=== PATIENT | female | born 1960 | race Caucasian/White ===

== ENCOUNTER 2017-11-08 22:46 | Inpatient (IN) | payer OTHER ==
[~2017-11-08] VITALS: Ht 177.8 cm; Wt 132.6 kg
[2017-11-08] MEDS: LACTATED RINGER'S 1000 ML INJ 1,000 ML IV SCH (02:00)
[2017-11-08 22:45] VITALS: O2SAT 100
[2017-11-08] MEDS ORDERED: ceFAZolin 2 GM PREMIX 50 ML ONE (22:48)
[2017-11-08] MEDS ORDERED: DIPHTH/TETANUS/ACEL PERTUSSIS (BOOSTER) 0.5 ML VIAL/PFS IM ONE (22:48)
[2017-11-08] MEDS ORDERED: MIDAZOLAM HCL 5 MG/ML VIAL (1 ML) ONE (22:52)
[2017-11-08 23:14] LABS: AUTOMATED NEUTROPHIL # 5.1 TH/MM3 (1.8-7.7); BASOPHIL % 0.4 % (0.0-2.0); EOSINOPHIL # 0.2 TH/MM3 (0-0.4); EOSINOPHIL % 1.8 % (0.0-4.0); HEMATOCRIT 33.1 % (35.0-46.0); HEMOGLOBIN 10.9 GM/DL (11.6-15.3); LYMPH % 34.8 % (9.0-44.0); LYMPHOCYTE # 3.2 TH/MM3 (1.0-4.8); MEAN CELL VOLUME 84.4 FL (80.0-100.0); MEAN CORPUSCULAR HEMOGLOBIN 27.7 PG (27.0-34.0); MEAN CORPUSCULAR HGB CONC 32.8 % (32.0-36.0); MEAN PLATELET VOLUME 9.6 FL (7.0-11.0); MONOCYTE # 0.6 TH/MM3 (0-0.9); PLATELET COUNT 189 TH/MM3 (150-450); RED BLOOD COUNT 3.93 MIL/MM3 (4.00-5.30); RED CELL DISTRIBUTION WIDTH 15.2 % (11.6-17.2); WHITE BLOOD COUNT 9.1 TH/MM3 (4.0-11.0)
[2017-11-08] MEDS ORDERED: IOHEXOL 350 MG/ML 10 ML VIAL (for RAD DIAG) IVCONTRAST ONE (23:28)
[2017-11-08 23:33] LABS: PROTHROMBIN TIME - PATIENT 10.2 SEC (9.8-11.6)
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
[2017-11-08] MEDS ORDERED: MORPHINE SULFATE 4 MG/ML INJ IV PUSH PRN (23:45)
[2017-11-08] MEDS ORDERED: CHLORHEXIDINE GLUCONATE 2 % 1 PACK (2 CLOTHS) TOP PRN (23:45)
[2017-11-08] MEDS ORDERED: MISCELLANEOUS NURSING INFORMATION XX SCH (23:45)
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
[2017-11-09] MEDS: ACETAMINOPHEN 1000 MG/100 ML 100 ML IV SCH ×4 (00:35→16:13)
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
[2017-11-09] MEDS: cefTRIAXone INJ 1,000 MG in SODIUM CHLORIDE 0.9% INJ 100 ML IV SCH ×2 (02:00→11:47)
[2017-11-09 02:15] VITALS: BP 117/67; PULSE 76; RESP 17; TEMP 96.9; O2SAT 98
[2017-11-09] MEDS ORDERED: POVIDONE IODINE 5% (ANTISEPSIS KIT) 4 APPLICATIONS EACH NARE PRN (02:15)
[2017-11-09] MEDS ORDERED: CHLORHEXIDINE GLUCONATE 2 % 1 PACK (2 CLOTHS) TOPICAL PRN (02:15)
[2017-11-09] MEDS ORDERED: LACTATED RINGER'S 1000 ML IV PRN (02:15)
[2017-11-09] MEDS ORDERED: SODIUM CHLORID 0.9% 500 ML IV PRN (02:15)
[2017-11-09] MEDS ORDERED: METOPROLOL TARTRATE 25 MG TAB PO PRN (02:15)
[2017-11-09] MEDS: MORPHINE SULFATE 8 MG/ML INJ IV PUSH PRN ×4 (02:23→22:58)
[2017-11-09] MEDS: ONDANSETRON HCL 4 MG/2 ML VIAL IV PUSH PRN ×2 (02:58→11:54)
[2017-11-09] MEDS ORDERED: ONDANSETRON HCL 4 MG/2 ML VIAL IV PUSH PRN (03:00)
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
[2017-11-09] MEDS ORDERED: CHLORHEXIDINE GLUCONATE 2 % 1 PACK (2 CLOTHS) TOP SCH (04:00)
[2017-11-09 04:40] VITALS: BP 122/61; PULSE 80; RESP 17; TEMP 96.8; O2SAT 100
[2017-11-09 07:29] LABS: BICARBONATE 25.8 MEQ/L (21.0-32.0); CALCIUM 8.5 MG/DL (8.5-10.1); CREATININE 0.81 MG/DL (0.50-1.00)
[2017-11-09 07:30] LABS: AUTOMATED NEUTROPHIL # 8.2 TH/MM3 (1.8-7.7); BASOPHIL % 0.3 % (0.0-2.0); EOSINOPHIL % 0.1 % (0.0-4.0); HEMATOCRIT 29.7 % (35.0-46.0); HEMOGLOBIN 9.9 GM/DL (11.6-15.3); LYMPH % 10.3 % (9.0-44.0); MEAN CORPUSCULAR HEMOGLOBIN 28.2 PG (27.0-34.0); MEAN CORPUSCULAR HGB CONC 33.2 % (32.0-36.0); MEAN PLATELET VOLUME 9.6 FL (7.0-11.0); MONO % 7.5 % (0.0-8.0); MONOCYTE # 0.8 TH/MM3 (0-0.9); NEUT % 81.8 % (16.0-70.0); PLATELET COUNT 140 TH/MM3 (150-450); RED CELL DISTRIBUTION WIDTH 15.3 % (11.6-17.2)
[2017-11-09] MEDS ORDERED: VANCOMYCIN HCL 1000 MG VIAL ONE (08:33)
[2017-11-09] MEDS ORDERED: GENTAMICIN SULFATE 80 MG/2 ML VIAL ONE (08:33)
[2017-11-09] MEDS ORDERED: SODIUM CHLOR 0.9% 250 ML INJ 250 ML ONE (08:33)
[2017-11-09] MEDS ORDERED: PERC5TAB12 PO (08:37)
[2017-11-09] MEDS ORDERED: synthroid (08:38)
[2017-11-09] MEDS ORDERED: atenolol (08:39)
[2017-11-09] MEDS ORDERED: SODIUM CHLORIDE 0.9% FLUSH 10 ML FLUSH IV FLUSH PRN (08:45)
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
[2017-11-09] MEDS: SODIUM CHLORIDE 0.9% FLUSH 10 ML FLUSH IV FLUSH SCH (09:00)
[2017-11-09] MEDS ORDERED: DOCUSATE SODIUM 100 MG CAP PO SCH (09:00)
[2017-11-09] MEDS: DOCUSATE SODIUM 50 MG/SENNA 8.6 MG TAB PO SCH ×2 (09:00→20:40)
[2017-11-09] MEDS ORDERED: MAGNESIUM HYDROXIDE SUSP 30 ML CUP PO PRN (09:15)
[2017-11-09] MEDS ORDERED: MORPHINE SULFATE 8 MG/ML INJ IV PUSH PRN (09:15)
[2017-11-09] MEDS ORDERED: SENNOSIDES 8.6 MG TAB PO PRN (09:15)
[2017-11-09] MEDS ORDERED: BISACODYL 10 MG SUPP RECTAL PRN (09:15)
[2017-11-09] MEDS ORDERED: LACTULOSE SYRUP 20 GM/30 ML CUP PO PRN (09:30)
[2017-11-09] MEDS ORDERED: Post-op Orders (for Pharmacy) XX ONE (10:00)
[2017-11-09] MEDS: KETOROLAC TROMETHAMINE 30 MG/ML (IVP) VIAL IVP SCH ×3 (10:30→20:40)
--- NOTE | 2017-11-09 10:34 | RADRPT ---
EXAM DATE/TIME: 11/09/2017 09:45 [facility] COMPARISON: No previous studies available for comparison. INDICATIONS : Left tibia x fix. MEDICAL HISTORY : None. SURGICAL HISTORY : None. ENCOUNTER: Initial ACUITY: 1 day PAIN SCORE: Non-responsive. LOCATION: Left tibia/fibula. FINDINGS: 2 views of the left tibia and fibula demonstrate comminuted fractures of the proximal and distal fibu la and mid tibia. External fixators are present with good anatomic alignment of the osseous structure s. CONCLUSION: External fixators with good anatomic alignment of the fractured tibia and fibula. Carol Webster MD on November 09, 2017 at 10:30 Board Certified Radiologist. This report was verified electronically.
[2017-11-09] MEDS ORDERED: DO NOT ADM ANY ANTICOAGULANT DRUGS PRN (10:38)
[2017-11-09] MEDS ORDERED: MORPHINE SULFATE 4 MG/ML INJ ONE (10:42)
[2017-11-09] MEDS ORDERED: *morphine SULFATE 4 MG/ML PERIprocedure ONLY ONE (10:58)
[2017-11-09] MEDS: LACTATED RINGER'S 1000 ML INJ 1,000 ML IV SCH ×2 (11:00→20:39)
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
[2017-11-09 11:44] VITALS: BP 120/76; PULSE 66; RESP 16; TEMP 96.5; O2SAT 94
[2017-11-09] MEDS: oxyCODONE/ACETAMINOPHEN 5 MG/325 MG TAB PO PRN ×3 (11:54→20:37)
[2017-11-09] MEDS ORDERED: DEXAMETHASONE SOD PHOS 4 MG/ML VIAL IV ONE (12:00)
[2017-11-09] MEDS ORDERED: GLYCOPYRROLATE 1 MG/5 ML SYRINGE IV PUSH ONE (12:00)
[2017-11-09] MEDS ORDERED: ROCURONIUM INJ 50 MG/5 ML SYRINGE IV PUSH ONE (12:00)
[2017-11-09] MEDS ORDERED: NEOSTIGMINE 5 MG/5 ML SYRINGE IV PUSH ONE (12:00)
[2017-11-09] MEDS ORDERED: PROPOFOL 200 MG/20 ML AMP IV ONE (12:00)
[2017-11-09] MEDS ORDERED: LIDOCAINE HCL 1% PF 5 ML SYRINGE OTHER ONE (12:00)
[2017-11-09] MEDS ORDERED: PHENYLEPH/NS 1000 MCG/10 ML SYR IV ONE (12:00)
[2017-11-09] MEDS ORDERED: ePHEDrine/NS 25 MG/5 ML SYRINGE IV ONE (12:00)
[2017-11-09] MEDS ORDERED: ONDANSETRON HCL 4 MG/2 ML VIAL IV ONE (12:00)
[2017-11-09] MEDS: PROMETHAZINE HCL 25 MG TAB PO PRN ×2 (12:46→16:13)
[2017-11-09] MEDS ORDERED: SYMB160A INH (12:48)
--- NOTE | 2017-11-09 12:57 | EKG ---
Date Performed: 11/09/2017 Time Performed: 04:54:26 PTAGE: 57 years EKG: Sinus rhythm Anterior T wave changes are nonspecific Borderline ECG NO PREVIOUS TRACING DOCTOR: Esequiel Jones Interpretating Date/Time 11/09/2017 12:56:10
[2017-11-09 16:17] VITALS: BP 119/62; PULSE 62; RESP 16; TEMP 96.7; O2SAT 95
[2017-11-09 18:26] VITALS: PULSE 71
[2017-11-09] MEDS: VANCOMYCIN INJ 1,000 MG in SODIUM CHLOR 0.9% 250 ML INJ 250 ML IV SCH (20:39)
[2017-11-09 20:50] VITALS: BP 126/65; PULSE 78; RESP 18; TEMP 98.2; O2SAT 94
[2017-11-09] MEDS ORDERED: ZOLPIDEM TARTRATE 5 MG TAB PO PRN (21:00)
[2017-11-09] MEDS: ENOXAPARIN SODIUM 30 MG/0.3 ML SYRINGE SQ SCH (22:55)
[2017-11-10] VITALS (19 sets, daily range): BP systolic 91–117; BP diastolic 47–58; PULSE 67–87; RESP 17–18; TEMP 97.5–101.7; O2SAT 92–96
[2017-11-10] MEDS ORDERED: ASPI-516 CHEW (01:48)
[2017-11-10] MEDS ORDERED: LEVO.2 PO (01:48)
[2017-11-10] MEDS ORDERED: ZYRTEC PO (01:48)
[2017-11-10] MEDS ORDERED: CHOL10008 PO (01:48)
[2017-11-10] MEDS ORDERED: PLAQ200T PO (01:48)
[2017-11-10] MEDS ORDERED: ISOS1TAB PO (01:48)
[2017-11-10] MEDS ORDERED: SPIR25 PO (01:48)
[2017-11-10] MEDS ORDERED: PROT40TA PO (01:48)
[2017-11-10] MEDS ORDERED: ALBU6.7H INH (01:48)
[2017-11-10] MEDS ORDERED: FLUT1SPR5 EACH NARE (01:48)
[2017-11-10] MEDS ORDERED: PAME10CA PO (01:48)
[2017-11-10] MEDS ORDERED: ALPR.5 PO (01:48)
[2017-11-10] MEDS ORDERED: LISI-515 PO (01:48)
[2017-11-10] MEDS ORDERED: SYMB80AE INH (01:48)
[2017-11-10] MEDS ORDERED: ATEN1TAB75 PO (01:48)
[2017-11-10] MEDS ORDERED: PROZ20CA11 PO (01:48)
[2017-11-10] MEDS ORDERED: NITR0.4S SL (01:48)
[2017-11-10] MEDS: oxyCODONE/ACETAMINOPHEN 5 MG/325 MG TAB PO PRN ×4 (04:22→21:22)
[2017-11-10] MEDS: KETOROLAC TROMETHAMINE 30 MG/ML (IVP) VIAL IVP SCH ×4 (04:23→21:06)
[2017-11-10] MEDS: LACTATED RINGER'S 1000 ML INJ 1,000 ML IV SCH ×2 (05:40→15:40)
[2017-11-10] MEDS: MORPHINE SULFATE 8 MG/ML INJ IV PUSH PRN (06:34)
[2017-11-10] MEDS ORDERED: NITROGLYCERIN 0.4 MG SL 25 TABS/BTL SL PRN (06:45)
[2017-11-10] MEDS ORDERED: RESP: ALBUTEROL 2.5 MG/IPRATROPIUM 0.5 MG NEB (PRN) NEB (06:45)
[2017-11-10] MEDS ORDERED: NORTRIPTYLINE HCL 10 MG CAP PO PRN (06:45)
[2017-11-10] MEDS ORDERED: ALPRAZolam 0.5 MG TAB PO PRN (06:45)
--- NOTE | 2017-11-10 08:39 | PD.ORT.PN ---
Subjective Subjective Remarks Doing well. Continues to complain of right hip pain. Objective Vitals Vital Signs Date Time Temp Pulse Resp B/P (MAP) Pulse Ox O2 Delivery O2 Flow Rate FiO2 11/10/17 07:34 97.5 75 18 96/47 (63) 93 11/10/17 04:00 98.7 72 17 110/56 (74) 95 11/10/17 00:40 99.0 74 18 117/58 (77) 92 11/09/17 20:50 98.2 78 18 126/65 (85) 94 11/09/17 18:26 71 11/09/17 16:17 96.7 62 16 119/62 (81) 95 11/09/17 11:44 96.5 66 16 120/76 (91) 94 11/09/17 11:15 98.1 63 12 137/72 (93) 99 Nasal Cannula 3 11/09/17 11:00 67 12 146/76 (99) 100 Nasal Cannula 3 11/09/17 10:45 69 12 146/79 (101) 100 Nasal Cannula 3 11/09/17 10:30 98.1 81 12 138/65 (89) 98 Nasal Cannula 4 I/O 11/09/17 11/09/17 11/09/17 11/10/17 11/10/17 11/10/17 07:00 15:00 23:00 07:00 15:00 23:00 Intake Total 100 ml 1100 ml 100 ml 360 ml Output Total 100 ml 100 ml 650 ml Balance 100 ml 1000 ml 0 ml -290 ml Intake Oral 0 ml 360 ml IV Total 100 ml 1100 ml 100 ml Output Urine Total 650 ml Drainage Total 50 ml 100 ml Estimated Blood Loss 50 ml # Voids 2 # Bowel Movements 0 0 Result Diagram: 11/09/17 0630 11/09/17 0630 Objective Remarks Alert awake and oriented -3. No acute distress. Pulmonary: Normal respiratory effort. Right lower extremity: Neurovascularly intact, weakness in hip flexors 2/5. Passive range of motion is tolerable at the hip. +EHL/FHL, . + PT/DP pulses. Supple compartments. Negative Homans sign. Left lower extremity: neurovascularly intact, eX fix in place and intact. Dressing clean, dry and intact. +EHL/FHL Assessment & Plan Assessment and Plan Left grade 3 open tibia shaft irrigation debridement with external fixation- POD 1 Continues to complain of right hip pain. No other issues. continue iv abx lovenox NWB BLE Wound vac LLE, keep elevated MRI right hip Dr Jackson to take over orthopedic care. Kishore Richards Jr., MD Nov 10, 2017 08:39
[2017-11-10] MEDS: LISINOPRIL 20 MG TAB PO SCH (09:00)
[2017-11-10] MEDS: SPIRONOLACTONE 25 MG TAB PO SCH (09:00)
[2017-11-10] MEDS: ISOSORBIDE DINITRATE 5 MG TAB PO SCH ×2 (09:00→21:05)
[2017-11-10] MEDS: ATENOLOL 100 MG TAB PO SCH ×2 (09:00→21:06)
[2017-11-10] MEDS: BUDESONIDE-FORMOTEROL 80/4.5 MCG INHALER INH SCH ×2 (09:00→21:03)
[2017-11-10] MEDS: FLUoxetine HCL 20 MG CAP PO SCH (09:18)
[2017-11-10] MEDS: PANTOPRAZOLE SOD 40 MG DELAYED RELEASE TAB PO SCH (09:18)
[2017-11-10] MEDS: ASPIRIN 81 MG CHEW TAB CHEW SCH (09:19)
[2017-11-10] MEDS: DOCUSATE SODIUM 50 MG/SENNA 8.6 MG TAB PO SCH ×2 (09:20→21:05)
[2017-11-10] MEDS: GABAPENTIN 300 MG CAP PO SCH ×3 (09:20→16:40)
[2017-11-10] MEDS: CHOLECALCIFEROL (VIT D3) 1000 UNIT TAB PO SCH (09:20)
[2017-11-10] MEDS: LEVOTHYROXINE SODIUM 200 MCG TAB PO SCH (09:27)
[2017-11-10] MEDS: SODIUM CHLORIDE 0.9% FLUSH 10 ML FLUSH IV FLUSH SCH ×2 (09:27→21:05)
[2017-11-10] MEDS: METHOCARBAMOL 500 MG TAB PO SCH ×3 (09:27→21:05)
[2017-11-10] MEDS: ENOXAPARIN SODIUM 30 MG/0.3 ML SYRINGE SQ SCH (10:40)
[2017-11-10] MEDS: VANCOMYCIN INJ 1,000 MG in SODIUM CHLOR 0.9% 250 ML INJ 250 ML IV SCH ×2 (10:41→21:04)
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
[2017-11-11] VITALS (14 sets, daily range): BP systolic 96–132; BP diastolic 53–71; PULSE 76–82; RESP 16–19; TEMP 95.5–99; O2SAT 92–95
[2017-11-11] MEDS: LACTATED RINGER'S 1000 ML INJ 1,000 ML IV SCH ×2 (02:10→15:30)
[2017-11-11] MEDS: KETOROLAC TROMETHAMINE 30 MG/ML (IVP) VIAL IVP SCH (03:15)
[2017-11-11] MEDS: METHOCARBAMOL 500 MG TAB PO SCH ×3 (05:42→22:35)
[2017-11-11] MEDS: LEVOTHYROXINE SODIUM 200 MCG TAB PO SCH (05:42)
[2017-11-11] MEDS: oxyCODONE/ACETAMINOPHEN 5 MG/325 MG TAB PO PRN ×3 (05:46→16:53)
--- NOTE | 2017-11-11 06:46 | PD.ORT.PN ---
Subjective Subjective Remarks Resting comfortably with no new complaints Objective Vitals Vital Signs Date Time Temp Pulse Resp B/P (MAP) Pulse Ox O2 Delivery O2 Flow Rate FiO2 11/11/17 03:50 81 11/11/17 03:45 99.0 81 16 115/54 (74) 92 11/11/17 02:46 93 4.00 11/11/17 00:38 76 96/55 (69) 11/11/17 00:00 78 11/10/17 23:20 98.9 77 17 91/50 (64) 92 11/10/17 20:30 101.7 87 17 116/58 (77) 93 11/10/17 20:00 77 11/10/17 19:10 78 11/10/17 18:50 80 11/10/17 18:09 82 11/10/17 17:37 86 11/10/17 15:39 99.5 73 18 97/53 (68) 93 11/10/17 15:37 67 11/10/17 14:36 78 11/10/17 13:53 73 11/10/17 13:15 78 11/10/17 12:23 69 11/10/17 11:29 97.5 72 18 93/48 (63) 93 11/10/17 09:10 96 Nasal Cannula 2.50 11/10/17 08:35 78 11/10/17 07:34 97.5 75 18 96/47 (63) 93 I/O 11/10/17 11/10/17 11/10/17 11/11/17 11/11/17 11/11/17 07:00 15:00 23:00 07:00 15:00 23:00 Intake Total 360 ml 1598 ml 1725 ml Output Total 650 ml 340 ml 175 ml 125 ml Balance -290 ml 1258 ml -175 ml 1600 ml Intake Oral 360 ml 850 ml IV Total 748 ml 1725 ml Output Urine Total 650 ml 300 ml Drainage Total 40 ml 175 ml 125 ml # Bowel Movements 0 0 Result Diagram: 11/09/17 0630 11/09/17 0630 Objective Remarks Alert awake and oriented -3. No acute distress. Pulmonary: Normal respiratory effort. Right lower extremity: Neurovascularly intact, weakness in hip flexors 2/5. Passive range of motion is tolerable at the hip. Pain with active range of motion of hip +EHL/FHL, . + PT/DP pulses. Supple compartments. Negative Homans sign. Left lower extremity: neurovascularly intact, eX fix in place and intact. Dressing clean, dry and intact. +EHL/FHL Assessment & Plan Assessment and Plan Left grade 3 open tibia shaft irrigation debridement with external fixation- POD 2 Continues to complain of right hip pain. No other issues. continue iv abx hold lovenox Nothing by mouth surgery this morning with Dr. Alba Sign consents Right inferior superior pubic rami fractures and minimally displaced fracture of right sacrum Weightbearing as tolerated right lower extremity Zhang Rutherford Jr. Nov 11, 2017 06:46
[2017-11-11] MEDS: LISINOPRIL 20 MG TAB PO SCH (09:00)
[2017-11-11] MEDS: ASPIRIN 81 MG CHEW TAB CHEW SCH (09:00)
[2017-11-11] MEDS: GABAPENTIN 300 MG CAP PO SCH ×3 (09:00→17:03)
[2017-11-11] MEDS: SODIUM CHLORIDE 0.9% FLUSH 10 ML FLUSH IV FLUSH SCH ×2 (09:00→21:00)
[2017-11-11] MEDS: SPIRONOLACTONE 25 MG TAB PO SCH (09:00)
[2017-11-11] MEDS: PANTOPRAZOLE SOD 40 MG DELAYED RELEASE TAB PO SCH (09:00)
[2017-11-11] MEDS: DOCUSATE SODIUM 50 MG/SENNA 8.6 MG TAB PO SCH ×2 (09:00→21:06)
[2017-11-11] MEDS: BUDESONIDE-FORMOTEROL 80/4.5 MCG INHALER INH SCH ×2 (09:00→21:00)
[2017-11-11] MEDS: FLUoxetine HCL 20 MG CAP PO SCH (09:00)
[2017-11-11] MEDS: ISOSORBIDE DINITRATE 5 MG TAB PO SCH ×2 (09:00→21:06)
[2017-11-11] MEDS: CHOLECALCIFEROL (VIT D3) 1000 UNIT TAB PO SCH (09:00)
[2017-11-11] MEDS: ATENOLOL 100 MG TAB PO SCH ×2 (09:07→21:06)
[2017-11-11] MEDS: VANCOMYCIN INJ 1,000 MG in SODIUM CHLOR 0.9% 250 ML INJ 250 ML IV SCH (09:07)
[2017-11-11] MEDS ORDERED: CETI-1 PO (10:32)
[2017-11-11] MEDS ORDERED: ceFAZolin 2 GM PREMIX 50 ML ONE (10:51)
[2017-11-11] MEDS ORDERED: GENTAMICIN SULFATE 80 MG/2 ML VIAL ONE ×2 (10:54→12:01)
[2017-11-11] MEDS ORDERED: ePHEDrine/NS 25 MG/5 ML SYRINGE IV ONE (12:00)
[2017-11-11] MEDS ORDERED: DEXAMETHASONE SOD PHOS 4 MG/ML VIAL IV ONE (12:00)
[2017-11-11] MEDS ORDERED: PROPOFOL 200 MG/20 ML AMP IV ONE (12:00)
[2017-11-11] MEDS ORDERED: PHENYLEPH/NS 1000 MCG/10 ML SYR IV ONE (12:00)
[2017-11-11] MEDS ORDERED: ROCURONIUM INJ 50 MG/5 ML SYRINGE IV PUSH ONE (12:00)
[2017-11-11] MEDS ORDERED: NEOSTIGMINE 5 MG/5 ML SYRINGE IV PUSH ONE (12:00)
[2017-11-11] MEDS ORDERED: LIDOCAINE HCL 1% PF 5 ML SYRINGE OTHER ONE (12:00)
[2017-11-11] MEDS ORDERED: GLYCOPYRROLATE 1 MG/5 ML SYRINGE IV PUSH ONE (12:00)
[2017-11-11] MEDS ORDERED: FAMOTIDINE 20 MG/2 ML VIAL ONE (13:02)
[2017-11-11] MEDS ORDERED: MIDAZOLAM HCL 2 MG/2 ML VIAL ONE (13:02)
[2017-11-11] MEDS ORDERED: ACETAMINOPHEN 1000 MG/100 ML 100 ML IV ONE (13:02)
[2017-11-11] MEDS ORDERED: APREPITANT 40 MG CAP ONE (13:31)
[2017-11-11] MEDS ORDERED: ceFAZolin INJ 1,000 MG VIAL IV ONE (14:44)
--- NOTE | 2017-11-11 15:36 | PD.OP ---
cc: Jass Alba MD Operative Report Date of Surgery: Nov 11, 2017 Preoperative Diagnosis: Type IIIB open left tibia fracture Postoperative Diagnosis: Procedure: Irrigation and debridement of open left tibia fracture, revision of external fixation, application wound VAC dressing Anesthesia: Gen. Surgeon: Jass Alba Chemistry Intern(s): VINITA Connell PA-C The surgical procedure was assisted by my physician child care center assistant director. My P.A. presence was necessary throughout this case for the manipulation and positioning of the surgical extremity. My P.A. was assisting me throughout the duration of this procedure. The skill set of a physician child care center assistant director was medically necessary to complete this procedure. During the surgical case the surgical services coordinator was working at the back table and the physician child care center assistant director was directly assisting me. Operation and Findings: Dorothy was seen and evaluated preoperatively. She initially presented with an open tibia fracture treated with irrigation debridement and external fixation of left leg. Patient was seen and evaluated preoperatively. Informed consent was obtained for surgery. Operative site was marked. Patient brought to operating room. She was given IV sedation and general anesthesia. IV antibiotics were administered. Timeout procedure was performed. Left leg was prepped with alcohol by Missy and draped in usual sterile fashion. Procedure began with irrigation debridement of fracture. The external fixator construct was loosened. Bars and clamps were removed. Pins were left in place. Curettes and rongeurs were used to debride bone. Overall the wound was relatively clean. Areas of soft tissue and muscle were sharply debrided. After completion of excisional debridement, the wound was thoroughly irrigated with 3 L of sterile saline. At this point attention was turned to revision of external fixation. The tibia was held in reduced position. Clamps and bars were now placed over the pins. The fracture was held reduced and the external fixator construct was tightened. Fracture was visually reduced. At this point attention was turned the soft tissue. Soft tissue was further evaluated. There is not enough skin of viable to perform a closure of the wound. The patient will need a soft tissue flap with either a soleus muscle flap or possible free tissue transfer. Plastic surgery will be consulted to help make decision regarding soft tissue flap necessary. A VAC dressing was now applied. A dressing was sealed appropriate. Patient was awakened and transferred to recovery room in stable condition. Jass Alba MD Nov 11, 2017 15:36
[2017-11-11] MEDS ORDERED: DO NOT ADM ANY ANTICOAGULANT DRUGS PRN (15:43)
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
[2017-11-11] MEDS ORDERED: WHEEMIS3 (16:56)
[2017-11-11] MEDS ORDERED: WALKER WHEELS/F1 MIS (16:56)
[2017-11-11] MEDS ORDERED: COMMODE BEDSIDE1 MI1 (16:56)
[2017-11-11] MEDS: CEFAZOLIN INJ 2,000 MG in SODIUM CHLORIDE 0.9% INJ 100 ML IV SCH (22:35)
[2017-11-12] VITALS (10 sets, daily range): BP systolic 104–170; BP diastolic 54–63; PULSE 65–83; RESP 16–19; TEMP 95.5–99.7; O2SAT 96–100
[2017-11-12] MEDS: LACTATED RINGER'S 1000 ML INJ 1,000 ML IV SCH ×3 (00:48→21:30)
[2017-11-12] MEDS: GENTAMICIN INJ 80 MG in SODIUM CHLORIDE 0.9% INJ 100 ML IV SCH ×4 (00:48→23:53)
[2017-11-12] MEDS: ENOXAPARIN SODIUM 30 MG/0.3 ML SYRINGE SQ SCH ×2 (01:59→12:47)
[2017-11-12] MEDS: oxyCODONE/ACETAMINOPHEN 5 MG/325 MG TAB PO PRN ×4 (01:59→21:27)
[2017-11-12 04:04] LABS: HEMATOCRIT 21.9 % (35.0-46.0); HEMOGLOBIN 7.3 GM/DL (11.6-15.3)
[2017-11-12] MEDS ORDERED: SODIUM CHLOR 0.9% 250 ML INJ 250 ML IV ONE (06:00)
[2017-11-12] MEDS: METHOCARBAMOL 500 MG TAB PO SCH (06:00)
[2017-11-12] MEDS: CEFAZOLIN INJ 2,000 MG in SODIUM CHLORIDE 0.9% INJ 100 ML IV SCH ×3 (06:05→22:35)
[2017-11-12] MEDS: LEVOTHYROXINE SODIUM 200 MCG TAB PO SCH (06:05)
--- NOTE | 2017-11-12 06:24 | PD.ORT.PN ---
Subjective Subjective Remarks POD 1 s/p left tibia I&D s/p right sup/inf rami fxs doing well. pain controlled. no complaints. Objective Vitals Vital Signs Date Time Temp Pulse Resp B/P (MAP) Pulse Ox O2 Delivery O2 Flow Rate FiO2 11/12/17 04:11 83 11/12/17 00:04 75 11/11/17 23:35 98.6 80 17 105/53 (70) 95 11/11/17 21:05 78 11/11/17 19:51 79 11/11/17 19:50 97.0 80 17 130/66 (87) 94 11/11/17 17:46 95 Nasal Cannula 4.00 11/11/17 16:53 95.5 79 18 125/71 (89) 95 11/11/17 16:30 99.0 81 20 123/58 (79) 98 Nasal Cannula 2 11/11/17 16:15 81 20 123/58 (79) 98 Nasal Cannula 2 11/11/17 16:00 80 20 114/57 (76) 97 Nasal Cannula 2 11/11/17 15:45 99.0 86 20 115/56 (75) 92 Nasal Cannula 2 11/11/17 11:32 97.8 82 19 132/63 (86) 92 11/11/17 09:44 80 11/11/17 07:49 98.3 80 19 127/57 (80) 94 I/O 11/11/17 11/11/17 11/11/17 11/12/17 11/12/17 11/12/17 07:00 15:00 23:00 07:00 15:00 23:00 Intake Total 1725 ml 720 ml 400 ml Output Total 125 ml 1125 ml 10 ml Balance 1600 ml -405 ml 390 ml Intake Oral 720 ml IV Total 1725 ml Other 400 ml Output Urine Total 1125 ml Drainage Total 125 ml Estimated Blood Loss 10 ml # Bowel Movements 0 Result Diagram: 11/12/17 0300 11/09/17 0630 Objective Remarks Alert awake and oriented -3. No acute distress. Pulmonary: Normal respiratory effort. Right lower extremity: Neurovascularly intact, weakness in hip flexors 2/5. Passive range of motion is tolerable at the hip. Pain with active range of motion of hip +EHL/FHL, . + PT/DP pulses. Supple compartments. Negative Homans sign. Left lower extremity: neurovascularly intact, eX fix in place and intact. Dressing clean, dry and intact. +EHL/FHL. +vac. good seal. Assessment & Plan Assessment and Plan 1) Left grade 3 open tibia shaft irrigation debridement with external fixation- POD 1 patient will need a soleus flap for skin coverage over tibia fracture before definitive fixation can be done. plastics has been consulted and will be evaluating today for possible flap will await their recs pending eval. if unable to perform soleus flap, will need transfer to [facility] for free flap 2) Right inferior superior pubic rami fractures and minimally displaced fracture of right sacrum Weightbearing as tolerated right lower extremity Sang Roe/Health Companion MARTHA Nov 12, 2017 06:23
[2017-11-12] MEDS: GABAPENTIN 300 MG CAP PO SCH ×3 (08:52→17:37)
[2017-11-12] MEDS: PANTOPRAZOLE SOD 40 MG DELAYED RELEASE TAB PO SCH (08:52)
[2017-11-12] MEDS: FLUoxetine HCL 20 MG CAP PO SCH (08:52)
[2017-11-12] MEDS: ATENOLOL 100 MG TAB PO SCH ×2 (08:52→21:00)
[2017-11-12] MEDS: LISINOPRIL 20 MG TAB PO SCH (08:52)
[2017-11-12] MEDS: SPIRONOLACTONE 25 MG TAB PO SCH (08:52)
[2017-11-12] MEDS: CHOLECALCIFEROL (VIT D3) 1000 UNIT TAB PO SCH (08:53)
[2017-11-12] MEDS: DOCUSATE SODIUM 50 MG/SENNA 8.6 MG TAB PO SCH ×2 (08:53→21:10)
[2017-11-12] MEDS: BUDESONIDE-FORMOTEROL 80/4.5 MCG INHALER INH SCH ×2 (08:54→21:00)
[2017-11-12] MEDS: ISOSORBIDE DINITRATE 5 MG TAB PO SCH ×2 (08:54→21:00)
[2017-11-12] MEDS: ASPIRIN 81 MG CHEW TAB CHEW SCH (08:54)
[2017-11-12] MEDS: SODIUM CHLORIDE 0.9% FLUSH 10 ML FLUSH IV FLUSH SCH ×2 (08:54→21:00)
[2017-11-12] MEDS: BACITRACIN TOP OINT 15 GM TUBE TOP SCH ×2 (09:00→21:00)
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
[2017-11-13] MEDS: oxyCODONE/ACETAMINOPHEN 5 MG/325 MG TAB PO PRN (01:00)
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
== END 2017-11-13 01:05 | disposition short-term general hospital (02) | DRG 958 ==
LOC: NEPI 22:46 → NEDH 11-09 00:16 → EDBD 11-09 00:16 → N06A 11-09 01:46
PROVIDERS: ADMIT Surgery Trauma Surgery; ATTEND Surgery Trauma Surgery
PROC: 0QSH35Z Reposition Left Tibia with External Fixation Device, Percutaneous Approach (ICD-10-PCS; principal; 2017-11-09 08:29)
PROC: 0KBT0ZZ Excision of Left Lower Leg Muscle, Open Approach (ICD-10-PCS; 2017-11-11)
PROC: 0QDH0ZZ Extraction of Left Tibia, Open Approach (ICD-10-PCS; 2017-11-11)
PROC: 0HDLXZZ Extraction of Left Lower Leg Skin, External Approach (ICD-10-PCS; 2017-11-11)
PROC: 0QW Lower Bones, Revision (ICD-10-PCS; 2017-11-11)
PROC: 30233N1 Transfusion of Nonautologous Red Blood Cells into Peripheral Vein, Percutaneous Approach (ICD-10-PCS; 2017-11-12)
DX: S82.292 Other fracture of shaft of left tibia (principal); Z68.41 Body mass index [BMI] 40.0-44.9, adult; S32.591A Other specified fracture of right pubis, initial encounter for closed fracture; S82.402B Unspecified fracture of shaft of left fibula, initial encounter for open fracture type I or II; S32.19XA Other fracture of sacrum, initial encounter for closed fracture; I10 Essential (primary) hypertension; V22 Motorcycle rider injured in collision with two- or three-wheeled motor vehicle; Y92.488 Other paved roadways as the place of occurrence of the external cause; Y93.89 Activity, other specified; E66.9 Obesity, unspecified; J44.9 Chronic obstructive pulmonary disease, unspecified; E03.9 Hypothyroidism, unspecified; F41.9 Anxiety disorder, unspecified; F32.9 Major depressive disorder, single episode, unspecified; M25.551 Pain in right hip; G47.30 Sleep apnea, unspecified; S00.91XA Abrasion of unspecified part of head, initial encounter
CPT/HCPCS: 29505; 36430; 70450; 71045; 71260; 72125; 72170; 73552; 73590; 74177; 76000; 80048; 82948; 85014; 85018; 85025; 85610; 85730; 86850; 86900; 86901; 86920; 90471; 90715; 93005; 94150; 96374; 96375; 99291; C1713; G0390; J0131; J0690; J0696; J1100; J1580; J1650; J1885; J2250; J2270; J2370; J2405; J2710; J3010; J3370; J7050; J7120; J8501; P9016; Q0169; Q9967